=== PATIENT | female | born 1975 | race Caucasian/White ===

== ENCOUNTER 2019-05-28 20:57 | Emergency (ER) | payer OTHER ==
[~2019-05-28] VITALS: Ht 170.2 cm; Wt 79.8 kg
[2019-05-28 21:01] VITALS: Ht 170.2 cm; Wt 79.8 kg
[2019-05-28] MEDS ORDERED: LIDOCAINE/MYLANTA 40 ML BTL PO STA (21:37)
[2019-05-28] MEDS ORDERED: FAMOTIDINE 20 MG TAB PO STA (21:37)
[2019-05-29 01:28] VITALS: BP 126/76; PULSE 71; RESP 18
== END 2019-05-29 01:28 | disposition home or self-care (01) ==
LOC: FTE 20:57
DX: O99.52 Diseases of the respiratory system complicating childbirth (principal); J02.9 Acute pharyngitis, unspecified; Z3A.01 Less than 8 weeks gestation of pregnancy
CPT/HCPCS: 36415; 76805; 80053; 81001; 81025; 83690; 84702; 85025; 87880; 93005; Z7502; Z7610